=== PATIENT | male | born 1980 | race Two or more races ===

== ENCOUNTER 2018-12-28 13:26 | Emergency (ER) | payer OTHER ==
[2018-12-28 13:36] VITALS: BP 141/50; PULSE 73; TEMP 99.8; BMI 30.9
--- NOTE | 2018-12-28 14:18 | PDOC ---
History of Present Illness - General Chief Complaint: Cold Symptoms Stated Complaint: COLD SYMPTOMS Time Seen by Provider: 12/28/18 14:08 History Source: Patient Exam Limitations: No Limitations - History of Present Illness Initial Comments: 12/28/18 14:14 Complaints of cough, fevers and chills, sinus headache, crackling ears, or throat pain, general body aches 2 days. 3 family members are ill with influenza Timing/Duration: reports: getting worse Severity: reports: mild, moderate Associated Symptoms: reports: cough, dizziness, earache, fever/chills, muscle aches, nasal congestion, nasal drainage, wheezing Past History - Travel Traveled outside of the country in the last 30 days: No Close contact w/someone who was outside of country & ill: No - Past Medical History Allergies/Adverse Reactions: Allergies Allergy/AdvReac Type Severity Reaction Status Date / Time aspirin Allergy Verified 01/03/14 22:18 Home Medications: Ambulatory Orders Oseltamivir Phosphate [Tamiflu -] 75 mg PO BID #10 capsule 12/28/18 COPD: No DVT: No Liver Disease: No - Surgical History Cholecystectomy: No - Immunization History Immunization Up to Date: No - Suicide/Smoking/Psychosocial Hx Smoking History: Never smoked Have you smoked in the past 12 months: No Information on smoking cessation initiated: No Hx Alcohol Use: No Drug/Substance Use Hx: No Review of Systems - Review of Systems Able to Perform ROS?: Yes Is the patient limited [place] proficient: Yes Constitutional: Yes: Symptoms Reported, See HPI, Chills, Fever, Malaise HEENTM: Yes: Symptoms Reported, See HPI, Nose Congestion Respiratory: Yes: Symptoms reported, See HPI, Cough. No: Wheezing Cardiac (ROS): No: Symptoms Reported Musculoskeletal: Yes: Symptoms Reported All Other Systems: Reviewed and Negative *Physical Exam - Vital Signs Last Vital Signs Temp Pulse Resp BP Pulse Ox 99.8 F H 73 18 141/50 L 98 12/28/18 13:34 12/28/18 13:34 12/28/18 13:34 12/28/18 13:34 12/28/18 13:34 - Physical Exam Comments: 12/28/18 14:15 GENERAL: [The child is awake, alert, and appropriately interactive.] EYES: [The pupils are equal, round, and reactive to light, with clear, conjunctiva.but glassy] NOSE: [The nose with clear drainage EARS: [The ear canals and tympanic membranes are congested but landmarks easily visualed ] THROAT: [The oropharynx is clear with erythema, no exudates. The mucous membranes are moist.] NECK: [The neck is supple with mildly tender adenopathy, no menigemous] CHEST: [The lungs are coarse but clear without crackles, or wheezes.] HEART: [Heart is regular rhythm, with normal S1 and S2, no murmurs.] ABDOMEN: [The abdomen is soft and nontender with normal bowel sounds. There is no organomegaly and no mass. There is no guarding or rebound.] EXTREMITIES: [Extremities are normal.] NEURO: [Behavior is normal for age.cranky but easily,m Tone is normal.] SKIN: [Skin is unremarkable without rash or swelling. There is no bruising, and there are no other signs of injury.] General Appearance: Yes: Nourished, Appropriately Dressed, Mild Distress HEENT: positive: TMs Normal Moderate Sedation - Procedure Monitoring Vital Signs: Procedure Monitoring Vital Signs Temperature 99.8 F H 12/28/18 13:34 Pulse Rate 73 12/28/18 13:34 Respiratory Rate 18 12/28/18 13:34 Blood Pressure 141/50 L 12/28/18 13:34 O2 Sat by Pulse Oximetry (%) 98 12/28/18 13:34 Progress Note - Progress Note Progress Note: Upper respiratory infection, with clinical indications is influenza, all of family is ill with same. Treat with Tamiflu *DC/Admit/Observation/Transfer Diagnosis at time of Disposition: Influenzal acute upper respiratory infection - Discharge Dispostion Disposition: HOME Condition at time of disposition: Stable Decision to Admit order: No - Referrals - Patient Instructions Printed Discharge Instructions: DI for Viral Upper Respiratory Infection -- Adult Additional Instructions: Rest, drink lots of fluids: Teas, water, soups, Pedialyte Saltwater gargles Steamy showers/seem to face break up mucus Old-fashioned treatments help! Avoid contact with others until fevers and cough resolved as this is very contagious Lots of handwashing and good hygiene Continue [id number] medications for symptomatic relief Tylenol or Motrin for fever and pain Take all of Tamiflu as directed: 1 tab every 12 hours for 5 days Followup with private physician in one to 2 days as needed or if worsening Return to emergency department for worsened symptoms, fevers, dehydration Influenza takes between 5 and 7 days for resolution To not participate in any activity, work, or school until fevers and cough are gone for at least one day - Post Discharge Activity Forms/Work/School Notes: Back to Work
== END 2018-12-28 14:16 | disposition home or self-care (01) ==
LOC: JERFT 13:26
DX: J11.1 Influenza due to unidentified influenza virus with other respiratory manifestations (principal)
CPT/HCPCS: 99281-25

== ENCOUNTER 2019-01-28 15:43 | Emergency (ER) | payer OTHER ==
[2019-01-28 16:02] VITALS: BP 128/86; PULSE 72; TEMP 98.6; BMI 29.7
--- NOTE | 2019-01-28 16:02 | PDOC ---
Rapid Medical Evaluation Time Seen by Provider: 01/28/19 16:02 Medical Evaluation: Allergies Allergy/AdvReac Type Severity Reaction Status Date / Time aspirin Allergy Verified 01/03/14 22:18 01/28/19 16:02 I performed a brief in-person evaluation of this patient. Chief complaint: "Hemorrhoid pain" Pertinent physical exam findings: Deferred I have ordered the following: None Patient will proceed to the ED for further evaluation. Discharge Disposition - Diagnosis Hemorrhoid - Referrals - Patient Instructions - Post Discharge Activity
--- NOTE | 2019-01-28 18:07 | PDOC ---
History of Present Illness - General Chief Complaint: Hemorrhoids Stated Complaint: CONSTIPATION/ RECTAL PAIN Time Seen by Provider: 01/28/19 16:02 History Source: Patient Exam Limitations: Clinical Condition - History of Present Illness Initial Comments: 01/28/19 18:09 Patient with history of with history of chronic constipation and hemorrhoids present with complaint of hemorrhoid pain since yesterday. Patient reported having bowel movement which was hard and started having pain to the hemorrhoid. Patient reports seen GI 3 months ago and had endoscopy done which was normal and was told external hemorrhoids will be managed by tying the hemorrhoid has not had it done yet. Patient also reported feeling of stool in the rectal area. Denies any other symptoms Timing/Duration: 1 week Past History - Past Medical History Allergies/Adverse Reactions: Allergies Allergy/AdvReac Type Severity Reaction Status Date / Time aspirin Allergy Verified 01/28/19 16:02 Home Medications: Ambulatory Orders Oseltamivir Phosphate [Tamiflu -] 75 mg PO BID #10 capsule 12/28/18 Lidocaine 5% Top. Ointment [Xylocaine 5% Top. Ointment -] 1 applic TP TID PRN # 1 tube 01/28/19 Sennosides/Docusate Sodium [Colace 2-in-1 Tablet] 1 each PO BID #60 tablet 01/28 Witch Joleen 50% (Tucks) [Tucks Witch Joleen Pads] 40 pad TP Q4H PRN #60 pad 01/28 COPD: No DVT: No GI Disorders: (HEMMROIDS) Liver Disease: No - Surgical History Cholecystectomy: No - Immunization History Immunization Up to Date: No - Suicide/Smoking/Psychosocial Hx Smoking History: Never smoked Have you smoked in the past 12 months: No Information on smoking cessation initiated: No Hx Alcohol Use: No Drug/Substance Use Hx: No Review of Systems - Review of Systems Able to Perform ROS?: Yes Is the patient limited Chinese proficient: No Constitutional: No: Chills, Fever, Malaise HEENTM: No: Symptoms Reported Respiratory: No: Symptoms reported Cardiac (ROS): No: Symptoms Reported ABD/GI: Yes: See HPI, Constipated, Other (hemorrhoids). No: Abdominal Distended , Nausea, Rectal Bleeding, Vomiting, Abdominal cramping All Other Systems: Reviewed and Negative *Physical Exam - Vital Signs Last Vital Signs Temp Pulse Resp BP Pulse Ox 98.6 F 72 17 128/86 98 01/28/19 15:59 01/28/19 15:59 01/28/19 15:59 01/28/19 15:59 01/28/19 15:59 - Physical Exam Comments: 01/28/19 18:12 GENERAL: Well developed, well nourished. Awake and alert. No acute distress. NECK: Supple. Full ROM. CARDIOVASCULAR: Regular rate and rhythm. No murmurs, rubs, or gallops. Distal pulses are 2+ and symmetric. PULMONARY: No evidence of respiratory distress. Lungs clear to auscultation bilaterally. No wheezing, rales or rhonchi. ABDOMINAL: Soft. Non-tender. Non-distended. No rebound or guarding. No organomegaly. Normoactive bowel sounds. Rectal: mild amount of stool outside rectum with external pundulated non- bleeding hemorrhoids SKIN: Warm and dry. Normal capillary refill. No rashes. No jaundice. NEUROLOGICAL: Alert, awake, appropriate. Gait is normal without ataxia. PSYCHIATRIC: Cooperative. Good eye contact. Appropriate mood General Appearance: Yes: Nourished, Appropriately Dressed. No: Apparent Distress Moderate Sedation - Procedure Monitoring Vital Signs: Procedure Monitoring Vital Signs Temperature 98.6 F 01/28/19 15:59 Pulse Rate 72 01/28/19 15:59 Respiratory Rate 17 01/28/19 15:59 Blood Pressure 128/86 01/28/19 15:59 O2 Sat by Pulse Oximetry (%) 98 01/28/19 15:59 Medical Decision Making - Medical Decision Making 01/28/19 18:14 Patient with history of with history of chronic constipation and hemorrhoids present with complaint of hemorrhoid pain since yesterday. Patient reported having bowel movement which was hard and started having pain to the hemorrhoid. Patient reports seen GI 3 months ago and had endoscopy done which was normal and was told external hemorrhoids will be managed by tying the hemorrhoid has not had it done yet. Patient also reported feeling of stool in the rectal area. Denies any other symptoms. Exam significant for : mild amount of stool outside rectum with external pundulated non-bleeding hemorrhoids. Patient is stable for outpatient management with tucks medicated wipe, Colace and topical lidocaine for pain with GI follow-up *DC/Admit/Observation/Transfer Diagnosis at time of Disposition: Hemorrhoid Qualifiers: Hemorrhoid type: unspecified Qualified Code(s): K64.9 - Unspecified hemorrhoids - Discharge Dispostion Disposition: HOME Condition at time of disposition: Stable Decision to Admit order: No - Prescriptions Prescriptions: Lidocaine 5% Top. Ointment [Xylocaine 5% Top. Ointment -] 1 applic TP TID PRN # 1 tube PRN Reason: rectal pain Sennosides/Docusate Sodium [Colace 2-in-1 Tablet] 1 each PO BID #60 tablet Witch Joleen 50% (Tucks) [Tucks Witch Joleen Pads] 40 pad TP Q4H PRN #60 pad PRN Reason: hemorrhoids - Referrals Referrals: Cuong Ratliff MD [Staff Physician] - - Patient Instructions Printed Discharge Instructions: DI for Hemorrhoids Additional Instructions: Take medications as prescribed. Follow-up with referred GI doctor for follow-up management - Post Discharge Activity
== END 2019-01-28 18:22 | disposition home or self-care (01) ==
LOC: JERFT 15:43
DX: K64.9 Unspecified hemorrhoids (principal)
CPT/HCPCS: 99281-25